=== PATIENT | female | born 1955 ===

== ENCOUNTER 2019-11-10 13:25 | Emergency (ER) | payer OTHER ==
[~2019-11-10] VITALS: Ht 157.5 cm; Wt 70.3 kg
[~2019-11-10 13:25] MED LIST: CHOL200074 PO
--- NOTE | 2019-11-10 13:50 | NUR ---
Pt here for elevated blood sugar, does not appear in acute distress.
[2019-11-10] MEDS ORDERED: SODIUM CHLORIDE FLUSH 10ML SYR IVF ONE (14:30)
[2019-11-10] MEDS ORDERED: SODIUM CHLORIDE 0.9% 1,000ML IVBOLUS ONE (14:30)
[2019-11-10 14:36] LABS: MICROSCOPIC AUTO
--- NOTE | 2019-11-10 14:42 | NUR ---
PIV initiated, labs sent, bolus infusing. Pt comfortable.
[2019-11-10 14:52] LABS: PH, VENOUS 7.411 pH (7.320-7.420)
[2019-11-10 14:53] LABS: BASOPHILS # (AUTO) 0.04 x10^3/uL (0-0.1); BASOPHILS % (AUTO) 0 % (0-1); EOSINOPHILS # (AUTO) 0.09 x10^3/uL (0-0.4); EOSINOPHILS % (AUTO) 1 % (1-7); FIO2 ROOM AIR %; LYMPHOCYTES # (AUTO) 3.36 x10^3/uL (1-3.4); LYMPHOCYTES % (AUTO) 33 % (22-44); MD NO; MEAN CORPUSCULAR HEMOGLOBIN 30.4 pg (27.0-34.8); MEAN CORPUSCULAR HGB CONC 32.7 g/dL (32.4-35.8); MEAN PLATELET VOLUME 8.7 fL (7.4-10.4); MONOCYTES % (AUTO) 6 % (2-9); NEUTROPHILS # (AUTO) 6.07 x10^3/uL (1.8-6.8); NEUTROPHILS % (AUTO) 60 % (42-75); PLATELET COUNT 271 x10^3/uL (130-400); RED BLOOD COUNT 5.03 x10^6/uL (3.82-5.3); RED CELL DISTRIBUTION WIDTH 12.7 % (9.6-15.2)
[2019-11-10] MEDS ORDERED: CEFTRIAXONE PMX 1GM/50ML 50 ML IVPB ONE (15:00)
[2019-11-10 15:04] LABS: ALBUMIN 3.7 g/dL (3.4-5.0); ANION GAP 8 mmol/L (5-15); CALCIUM 9.3 mg/dL (8.5-10.1); CHLORIDE 104 mmol/L (98-107)
[2019-11-10] MEDS ORDERED: CEFTRIAXONE PMX 1GM/50ML 50 ML ONE (15:05)
--- NOTE | 2019-11-10 15:10 | NUR ---
Blood CX drawn, ABX infusing.
[2019-11-10 15:17] VITALS: BP 165/86
[2019-11-10 15:20] LABS: ACETONE, SERUM Negative (Negative)
== END 2019-11-10 15:58 | disposition home or self-care (01) ==
LOC: ED 15:16
DX: N30.00 Acute cystitis without hematuria (principal); R73.9 Hyperglycemia, unspecified; R73.09 Other abnormal glucose; Z87.891 Personal history of nicotine dependence
CPT/HCPCS: 36415; 71045; 80048; 81001; 82010; 82040; 82803; 85025; 87040; 87086; 96374; 99284; J0696; J7030; 82962

== ENCOUNTER 2019-11-16 19:48 | Emergency (ER) | payer SELFPAY ==
[~2019-11-16] VITALS: Ht 157.5 cm; Wt 73.6 kg
[2019-11-16 19:50] VITALS: BP 166/95
[2019-11-16] MEDS ORDERED: FLUORESCEIN OPHTHALMIC 1 MG STRIP ONE (19:56)
[2019-11-16] MEDS ORDERED: PROPARACAINE OPHTH 0.5%, 15ML ONE (19:56)
--- NOTE | 2019-11-16 20:56 | NUR ---
pa at bedside to evaluate at this time.
[2019-11-16 21:16] LABS: BASOPHILS # (AUTO) 0.05 x10^3/uL (0-0.1); BASOPHILS % (AUTO) 1 % (0-1); EOSINOPHILS % (AUTO) 1 % (1-7); LYMPHOCYTES % (AUTO) 31 % (22-44); MD NO; MEAN CORPUSCULAR HEMOGLOBIN 30.4 pg (27.0-34.8); MEAN CORPUSCULAR HGB CONC 33.3 g/dL (32.4-35.8); MEAN CORPUSCULAR VOLUME 91.5 fL (80-100); MEAN PLATELET VOLUME 8.7 fL (7.4-10.4); MONOCYTES # (AUTO) 0.71 x10^3/uL (0.2-0.8); MONOCYTES % (AUTO) 7 % (2-9); NEUTROPHILS # (AUTO) 6.12 x10^3/uL (1.8-6.8); NEUTROPHILS % (AUTO) 60 % (42-75); PLATELET COUNT 276 x10^3/uL (130-400); RED BLOOD COUNT 4.48 x10^6/uL (3.82-5.3); RED CELL DISTRIBUTION WIDTH 13.3 % (9.6-15.2)
[2019-11-16 21:19] LABS: ALBUMIN 3.4 g/dL (3.4-5.0); ANION GAP 7 mmol/L (5-15); CALCIUM 8.7 mg/dL (8.5-10.1); CHLORIDE 108 mmol/L (98-107); CREATININE 0.97 mg/dL (0.55-1.02)
[2019-11-16] MEDS ORDERED: KETOROLAC 30 MG/1 ML ONE (21:51)
--- NOTE | 2019-11-16 21:56 | NUR ---
pt medicated per emar. pt tolerated well.
[2019-11-16] MEDS ORDERED: KETOROLAC 30 MG/1 ML IM ONE (22:00)
--- NOTE | 2019-11-16 22:31 | NUR ---
Patient given discharge instructions and they have confirmed that they understand the instructions. Patient ambulatory with steady gait.
== END 2019-11-16 22:32 | disposition home or self-care (01) ==
LOC: ED 20:37
DX: H11.31 Conjunctival hemorrhage, right eye (principal); E11.65 Type 2 diabetes mellitus with hyperglycemia; G44.219 Episodic tension-type headache, not intractable
CPT/HCPCS: 36415; 70450; 80048; 82040; 85025; 85651; 96372; 99284; J1885

== ENCOUNTER 2020-11-08 17:17 | Emergency (ER) | payer OTHER ==
[~2020-11-08] VITALS: Ht 157.5 cm; Wt 70.0 kg
--- NOTE | 2020-11-08 17:53 | NUR ---
pt c/o of fever, body aches, headache, sore throat and cough for 4 days. pt reports she has been traveling and is scared this could be covid19. pt reports she has not been vaccinated. breathing mildly fast at 22 rr. nadn. bed in low position, rails engaged. call light on lap.
[2020-11-08] MEDS ORDERED: ACETAMINOPHEN 500 MG TABLET PO ONE (18:00)
[2020-11-08] MEDS ORDERED: ACETAMINOPHEN 500 MG TABLET ONE (18:05)
--- NOTE | 2020-11-08 18:07 | NUR ---
KANIKA PEREZ GAVE THIS NURSE VERBAL ORDER TO NOT GIVE DECADRON
[2020-11-08] MEDS ORDERED: DEXAMETHASONE 4 MG TABLET ONE (18:18)
[2020-11-08] MEDS ORDERED: DEXAMETHASONE 4 MG TABLET PO ONE (18:30)
[2020-11-08 18:58] VITALS: BP 143/79
--- NOTE | 2020-11-08 19:11 | NUR ---
Patient/Caregiver given discharge instructions and they have confirmed that they understand the instructions. Patient ambulatory with steady gait. NAD, all questions answered appropriately, denies additional needs at this time. No personal belongings left in room after discharge.
== END 2020-11-08 19:15 | disposition home or self-care (01) ==
LOC: ED 18:00
DX: U07.1 COVID-19 (principal); B34.9 Viral infection, unspecified; R00.0 Tachycardia, unspecified; E11.65 Type 2 diabetes mellitus with hyperglycemia
CPT/HCPCS: 71045; 99284; U0003; U0005

== ENCOUNTER 2020-11-12 09:37 | Inpatient (IN) | payer OTHER ==
[~2020-11-12] VITALS: Ht 157.5 cm; Wt 75.3 kg
--- NOTE | 2020-11-12 09:57 | NUR ---
pt presents to [facility] c/o body aches, dry cough, and loss of appetite, +covid on wednesday. pt a&o, resps even and unlabored, vss, nadn.
--- NOTE | 2020-11-12 10:20 | NUR ---
pt placed on 2L nc for o2 sat of 90% on RA. o2 sat now 96%
--- NOTE | 2020-11-12 10:30 | NUR ---
LEÓN Llamas at bedside for initial assessment/eval
[2020-11-12] MEDS ORDERED: SODIUM CHLORIDE 0.9% 1,000ML IVBOLUS ONE (11:00)
[2020-11-12] MEDS ORDERED: SODIUM CHLORIDE FLUSH 10ML SYR IVF ONE (11:00)
--- NOTE | 2020-11-12 11:04 | NUR ---
PIV placed, labs drawn, fluids infusing. XR at bedside. pt a&o, resps even and unlabored, nadn.
[2020-11-12 11:09] LABS: BASOPHILS % (AUTO) 0 % (0-1); EOSINOPHILS % (AUTO) 0 % (1-7); LYMPHOCYTES % (AUTO) 19 % (22-44); MEAN CORPUSCULAR HEMOGLOBIN 30.3 pg (27.0-34.8); MEAN PLATELET VOLUME 8.2 fL (7.4-10.4); MONOCYTES % (AUTO) 5 % (2-9); NEUTROPHILS % (AUTO) 75 % (42-75); PLATELET COUNT 157 x10^3/uL (130-400); RED BLOOD COUNT 4.73 x10^6/uL (3.82-5.3); RED CELL DISTRIBUTION WIDTH 13.4 % (9.6-15.2)
[2020-11-12 11:17] LABS: ALANINE AMINOTRANSFERASE 36 U/L (12-78); ALBUMIN 2.6 g/dL (3.4-5.0); ANION GAP 8 mmol/L (5-15); CALCIUM 8.4 mg/dL (8.5-10.1); CHLORIDE 107 mmol/L (98-107); CREATININE 0.55 mg/dL (0.55-1.02)
[2020-11-12 11:20] LABS: ALKALINE PHOSPHATASE 125 U/L (45-117); BILIRUBIN,TOTAL 0.4 mg/dL (0.2-1.0); TOTAL PROTEIN 7.8 g/dL (6.4-8.2)
--- NOTE | 2020-11-12 11:50 | NUR ---
LEÓN Llamas at bedside to discuss POC. ABX started, pt a&o, resps even and unlabored, vss, nadn.
[2020-11-12] MEDS ORDERED: CEFTRIAXONE 1,000 MG in DEXTROSE 5% 50 ML IVPB ONE (12:00)
[2020-11-12] MEDS: AZITHROMYCIN 500 MG in SODIUM CHLORIDE 0.9% 250 ML IV SCH (12:38)
--- NOTE | 2020-11-12 12:45 | NUR ---
2nd ABX started, pt a&o, resps even and unlabored, vss, nadn.
[2020-11-12] MEDS ORDERED: HYDROcodone/APAP 5/325 TABLET PO PRN (13:00)
[2020-11-12] MEDS ORDERED: ONDANSETRON 2MG/ML, 2ML IVPush PRN (13:00)
[2020-11-12] MEDS ORDERED: ENOXAPARIN 40 MG/0.4 ML SQ SCH (13:00)
[2020-11-12] MEDS ORDERED: ENALAPRILAT 1.25 MG/ML, 2ML IVPush PRN (13:00)
[2020-11-12] MEDS ORDERED: ENOXAPARIN 40 MG/0.4 ML ONE (13:11)
[2020-11-12] MEDS ORDERED: DEXAMETHASONE 4 MG/ML, 1ML IVPush ONE (13:30)
--- NOTE | 2020-11-12 13:30 | NUR ---
pt provided with bedisde commode to use, able to void with no problems. pt a&o, resps even and unlabored, vss, nadn.
[2020-11-12] MEDS ORDERED: THIAMINE 100MG TABLET ONE (15:24)
[2020-11-12 16:17] VITALS: BP 146/86
[2020-11-12] MEDS: GUAIFENESIN/DM 200-20MG, 10ML UDC PO PRN (17:16)
[2020-11-12] MEDS: THIAMINE 50MG TABLET PO SCH (17:17)
[2020-11-12] MEDS: ACETAMINOPHEN 325 MG TABLET PO PRN (17:17)
[2020-11-12] MEDS: CHOLECALCIFEROL 5,000u TAB PO SCH (17:18)
[2020-11-12] MEDS: ASCORBIC ACID 250 MG TAB PO SCH (17:19)
[2020-11-12] MEDS: ZINC SULFATE 220 MG CAPSULE PO SCH (17:19)
[2020-11-12] MEDS ORDERED: MELATONIN 5 MG TABLET PO PRN (21:00)
[2020-11-12] MEDS ORDERED: DOXYCYCLINE 100MG TABLET PO ONE (21:00)
[2020-11-12 21:18] VITALS: BP 120/80
[2020-11-12] MEDS: INSULIN LISPRO 100 UNITS/ML, PEN SQ-INSULIN SCH (21:29)
[2020-11-13 00:22] VITALS: BP 118/78
[2020-11-13] MEDS: GUAIFENESIN/DM 200-20MG, 10ML UDC PO PRN ×2 (04:21→16:52)
[2020-11-13 06:49] LABS: ALANINE AMINOTRANSFERASE 28 U/L (12-78); ALBUMIN 2.3 g/dL (3.4-5.0); ANION GAP 11 mmol/L (5-15); CALCIUM 8.5 mg/dL (8.5-10.1); CHLORIDE 107 mmol/L (98-107); CREATININE 0.47 mg/dL (0.55-1.02)
[2020-11-13 06:50] LABS: ALKALINE PHOSPHATASE 112 U/L (45-117); BILIRUBIN,TOTAL 0.5 mg/dL (0.2-1.0); TOTAL PROTEIN 7.4 g/dL (6.4-8.2)
[2020-11-13 08:08] VITALS: BP 161/82
[2020-11-13] MEDS: ASCORBIC ACID 250 MG TAB PO SCH ×2 (08:17→16:52)
[2020-11-13] MEDS: THIAMINE 50MG TABLET PO SCH (08:17)
[2020-11-13] MEDS: ZINC SULFATE 220 MG CAPSULE PO SCH (08:17)
[2020-11-13] MEDS: INSULIN LISPRO 100 UNITS/ML, PEN SQ-INSULIN SCH ×4 (08:17→21:07)
[2020-11-13] MEDS: CHOLECALCIFEROL 5,000u TAB PO SCH (08:17)
[2020-11-13] MEDS: DEXAMETHASONE 4 MG/ML, 1ML IVPush SCH (12:37)
[2020-11-13 13:11] LABS: BASOPHILS % (AUTO) 0 % (0-1); EOSINOPHILS % (AUTO) 0 % (1-7); LYMPHOCYTES % (AUTO) 42 % (22-44); MEAN CORPUSCULAR HGB CONC 34.6 g/dL (32.4-35.8); MEAN PLATELET VOLUME 7.9 fL (7.4-10.4); MONOCYTES % (AUTO) 18 % (2-9); NEUTROPHILS % (AUTO) 41 % (42-75); PLATELET COUNT 228 x10^3/uL (130-400); RED BLOOD COUNT 4.48 x10^6/uL (3.82-5.3); RED CELL DISTRIBUTION WIDTH 13.2 % (9.6-15.2)
[2020-11-13] MEDS: AZITHROMYCIN 500 MG in SODIUM CHLORIDE 0.9% 250 ML IV SCH (13:15)
[2020-11-13 14:32] VITALS: BP 141/86
[2020-11-13] MEDS: ACETAMINOPHEN 325 MG TABLET PO PRN (16:52)
[2020-11-13] MEDS: CEFTRIAXONE 2 GM in DEXTROSE 5% 50 ML IVPB SCH (16:58)
[2020-11-13 19:39] VITALS: BP 142/82
[2020-11-13] MEDS ORDERED: INSULIN GLARGINE 100 UNITS/ML, PEN SQ-INSULIN SCH (21:00)
[2020-11-14 00:48] VITALS: BP_SYST 100; BP_SYST 150; BP_DIAS 65; BP_DIAS 83
[2020-11-14 06:20] LABS: BASOPHILS % (AUTO) 0 % (0-1); EOSINOPHILS % (AUTO) 0 % (1-7); LYMPHOCYTES % (AUTO) 42 % (22-44); MEAN CORPUSCULAR HEMOGLOBIN 30.7 pg (27.0-34.8); MEAN CORPUSCULAR HGB CONC 34.5 g/dL (32.4-35.8); MEAN PLATELET VOLUME 7.7 fL (7.4-10.4); MONOCYTES % (AUTO) 16 % (2-9); NEUTROPHILS % (AUTO) 42 % (42-75); PLATELET COUNT 244 x10^3/uL (130-400); RED BLOOD COUNT 4.22 x10^6/uL (3.82-5.3); RED CELL DISTRIBUTION WIDTH 13.1 % (9.6-15.2)
[2020-11-14 06:26] LABS: CHLORIDE 109 mmol/L (98-107); D-DIMER 0.96 ug/mlFEU (0.00-0.52); HCT (SEDRATE) 37.6 % (34.6-47.8); INTERNATIONAL NORMALIZED RATIO 0.95 (0.93-1.1); PROTHROMBIN TIME 10.2 Seconds (9.6-11.5)
[2020-11-14 06:47] LABS: ALANINE AMINOTRANSFERASE 23 U/L (12-78); ALBUMIN 2.2 g/dL (3.4-5.0); ALKALINE PHOSPHATASE 94 U/L (45-117); ANION GAP 8 mmol/L (5-15); BILIRUBIN,TOTAL 0.3 mg/dL (0.2-1.0); CALCIUM 8.2 mg/dL (8.5-10.1); CREATININE 0.46 mg/dL (0.55-1.02)
[2020-11-14 07:54] VITALS: BP 136/81
[2020-11-14] MEDS: INSULIN LISPRO 100 UNITS/ML, PEN SQ-INSULIN SCH ×3 (08:13→16:00)
[2020-11-14] MEDS: THIAMINE 50MG TABLET PO SCH (08:15)
[2020-11-14] MEDS: ZINC SULFATE 220 MG CAPSULE PO SCH (08:15)
[2020-11-14] MEDS: ASCORBIC ACID 250 MG TAB PO SCH ×2 (08:15→17:00)
[2020-11-14] MEDS: CHOLECALCIFEROL 5,000u TAB PO SCH (08:16)
[2020-11-14] MEDS: DEXAMETHASONE 4 MG/ML, 1ML IVPush SCH (08:16)
[2020-11-14] MEDS ORDERED: LOSARTAN 25MG TABLET PO SCH (09:00)
[2020-11-14 11:31] LABS: OCCULT BLOOD POSITIVE (NEGATIVE)
[2020-11-14] MEDS: GUAIFENESIN/DM 200-20MG, 10ML UDC PO PRN (11:46)
[2020-11-14 13:20] VITALS: BP 138/83
[2020-11-14] MEDS: CEFTRIAXONE 2 GM in DEXTROSE 5% 50 ML IVPB SCH ×2 (13:30→18:58)
[2020-11-14] MEDS: AZITHROMYCIN 500 MG in SODIUM CHLORIDE 0.9% 250 ML IV SCH (14:04)
[2020-11-14] MEDS ORDERED: PRED20TA PO (15:02)
[2020-11-14] MEDS ORDERED: INSU100I13 SQ-INSULIN (15:02)
[2020-11-14] MEDS ORDERED: ASCO250T12 PO (15:02)
[2020-11-14] MEDS ORDERED: THIA50TA4 PO (15:02)
[2020-11-14] MEDS ORDERED: ZINC220C8 PO (15:02)
[2020-11-14] MEDS ORDERED: DOXY100T PO (15:08)
[2020-11-14] MEDS ORDERED: CEFD300C37 PO (15:08)
== END 2020-11-14 20:35 | disposition home health service (06) | DRG 177 ==
LOC: ED 09:47 → EDIP 13:00 → 3N 14:39
PROVIDERS: ADMIT Hospitalist; ATTEND Hospitalist
DX: U07.1 COVID-19 (principal); J12.82 Pneumonia due to coronavirus disease 2019; J96.01 Acute respiratory failure with hypoxia; E11.65 Type 2 diabetes mellitus with hyperglycemia
CPT/HCPCS: 36415; 71045; 80053; 82272; 82728; 82962; 83036; 83605; 83615; 83735; 84100; 84145; 85025; 85379; 85384; 85610; 85651; 86140; 93005; 96361; 96365; 96372; 96375; G0378; J0456; J0696; J1100; J1650; J1815; J7030; J7050